=== PATIENT | male | born 1950 | race Caucasian/White ===

== ENCOUNTER 2017-09-03 08:08 | Inpatient (IN) | payer MEDICARE, MEDICAID ==
[~2017-09-03] VITALS: Ht 175.3 cm; Wt 103.0 kg
[2017-09-03] MEDS ORDERED: SODIUM CHLORIDE FLUSH 10ML SYR IVF ONE (09:30)
[2017-09-03 10:14] LABS: ALBUMIN 3.2 g/dL (3.4-5.0); ANION GAP 7 mmol/L (5-15); CALCIUM 8.2 mg/dL (8.5-10.1); CHLORIDE 110 mmol/L (98-107)
[2017-09-03 10:21] LABS: ALANINE AMINOTRANSFERASE 17 U/L (12-78); ALKALINE PHOSPHATASE 92 U/L (45-117); BILIRUBIN,TOTAL 0.9 mg/dL (0.2-1.0); CREATININE 0.97 mg/dL (0.7-1.3); TOTAL PROTEIN 7.4 g/dL (6.4-8.2); TROPONIN I < 0.015 ng/mL (0.000-0.045)
[2017-09-03 10:40] LABS: D-DIMER 0.25 ug/mlFEU (0.00-0.52)
[2017-09-03 10:58] LABS: BASOPHILS # (AUTO) 0.01 x10^3/uL (0-0.1); BASOPHILS % (AUTO) 0 % (0-1); EOSINOPHILS # (AUTO) 0.04 x10^3/uL (0-0.4); EOSINOPHILS % (AUTO) 1 % (1-7); LYMPHOCYTES % (AUTO) 48 % (22-44); MD SCAN; MEAN CORPUSCULAR HEMOGLOBIN 34.6 pg (27.5-34.5); MEAN CORPUSCULAR HGB CONC 34.2 g/dL (33.2-36.2); MEAN PLATELET VOLUME 9.4 fL (7.4-10.4); MONOCYTES # (AUTO) 0.44 x10^3/uL (0.2-0.8); MONOCYTES % (AUTO) 10 % (2-9); NEUTROPHILS # (AUTO) 1.89 x10^3/uL (1.8-6.8); NEUTROPHILS % (AUTO) 41 % (42-75); RED CELL DISTRIBUTION WIDTH 17.8 % (9.4-14.8)
[2017-09-03] MEDS ORDERED: CEFTRIAXONE 1,000 MG in SODIUM CHLORIDE 0.9% 50 ML IVPB ONE (11:00)
[2017-09-03] MEDS ORDERED: AZITHROMYCIN 500 MG in SODIUM CHLORIDE 0.9% 250 ML IV ONE (11:00)
[2017-09-03 11:03] LABS: PLATELET COUNT 38 x10^3/uL (130-400)
[2017-09-03 14:07] VITALS: BP 132/85
[2017-09-03 14:22] VITALS: BP 127/74
[2017-09-03] MEDS ORDERED: ONDANSETRON 2MG/ML, 2ML IVPush PRN (14:30)
[2017-09-03] MEDS ORDERED: ACETAMINOPHEN 325 MG TABLET PO PRN (14:30)
[2017-09-03] MEDS ORDERED: ONDANSETRON ODT 4 MG PO PRN (14:30)
[2017-09-03] MEDS ORDERED: NICOTINE 14MG/24 HR PATCH.TD24 TD SCH (15:00)
[2017-09-03 15:24] LABS: ABSOLUTE RETICS # 0.099 x10^6/uL (0.5-1.5); RETICULOCYTE COUNT % 4.39 % (0.5-1.5)
[2017-09-03 15:25] LABS: RED BLOOD COUNT 2.26 x10^6/uL (4.38-5.82)
[2017-09-03 15:36] VITALS: BP 111/64
[2017-09-03 15:37] LABS: INTERNATIONAL NORMALIZED RATIO 1.02 (0.93-1.1); PROTHROMBIN TIME 10.6 Seconds (9.6-11.5)
[2017-09-03 15:42] LABS: THYROID STIMULATING HORMONE 1.82 mIU/L (0.358-3.740)
[2017-09-03] MEDS: SODIUM CHLORIDE 0.9% 1,000 ML IV SCH (15:43)
[2017-09-03] MEDS ORDERED: OMNIPAQUE 350 MG/ML, 100ML BOTTLE ONE (17:21)
[2017-09-03 17:46] VITALS: BP 132/85
[2017-09-03 18:26] LABS: % IRON SATURATION 31 % (20-55); IRON LEVEL 77 mcg/dL (65-175); TOTAL IRON BINDING CAPACITY 247 mcg/dL (250-450)
[2017-09-03 18:51] LABS: TRANSFERRIN 217 mg/dL (200-360)
[2017-09-03 18:54] LABS: FOLATE LEVEL > 20.0 ng/mL (3.1-17.5)
[2017-09-03 19:44] VITALS: BP 107/68
[2017-09-03] MEDS ORDERED: DOCUSATE 100 MG CAPSULE PO PRN (21:00)
[2017-09-04 03:24] VITALS: BP 101/63
[2017-09-04] MEDS: SODIUM CHLORIDE 0.9% 1,000 ML IV SCH (03:46)
[2017-09-04 05:37] LABS: CHLORIDE 110 mmol/L (98-107)
[2017-09-04 05:53] LABS: ALANINE AMINOTRANSFERASE 15 U/L (12-78); ALBUMIN 2.9 g/dL (3.4-5.0); ALKALINE PHOSPHATASE 93 U/L (45-117); ANION GAP 5 mmol/L (5-15); BILIRUBIN,TOTAL 1.4 mg/dL (0.2-1.0); CALCIUM 8.5 mg/dL (8.5-10.1); CREATININE 0.88 mg/dL (0.7-1.3); TOTAL PROTEIN 6.7 g/dL (6.4-8.2)
[2017-09-04 05:57] LABS: MEAN CORPUSCULAR HEMOGLOBIN 33.4 pg (27.5-34.5); MEAN CORPUSCULAR HGB CONC 34.1 g/dL (33.2-36.2); MEAN CORPUSCULAR VOLUME 98.1 fL (81-97); MEAN PLATELET VOLUME 8.9 fL (7.4-10.4); RED BLOOD COUNT 2.27 x10^6/uL (4.38-5.82); RED CELL DISTRIBUTION WIDTH 17.8 % (9.4-14.8)
[2017-09-04 05:57] LABS: OCCULT BLOOD NEGATIVE (NEGATIVE)
[2017-09-04 06:06] LABS: PLATELET COUNT 29 x10^3/uL (130-400)
[2017-09-04 07:17] LABS: MD YES
[2017-09-04 07:28] VITALS: BP 124/74
[2017-09-04] MEDS ORDERED: PANTOPRAZOLE 40 MG IV IVPush SCH (07:30)
[2017-09-04 07:44] LABS: BAND#(MANUAL) 0.14 x10^3/uL; BANDS%(MANUAL) 3 % (0-7); LYMPHS% (MANUAL) 63 % (22-44); MONOS#(MANUAL) 0.28 x10^3/uL (0.3-2.7); MONOS% (MANUAL) 6 % (2-9); NRBC % (MANUAL) 1 % (0-1); SEG#(MANUAL) 1.29 x10^3/uL (1.8-6.8); SEGS% (MANUAL) 28 % (42-75)
[2017-09-04 07:45] LABS: ANISOCYTOSIS 1+; POLYCHROMASIA 1+; TEAR DROPS 1+
[2017-09-04 07:46] LABS: <PLATELET ESTIMATE> DECREASED; <PLT MORPHOLOGY> NORMAL PLT MORPH
[2017-09-04] MEDS ORDERED: CEFTRIAXONE PMX 1GM/50ML 50 ML IV SCH (11:30)
[2017-09-04] MEDS ORDERED: AZITHROMYCIN 500 MG in SODIUM CHLORIDE 0.9% 250 ML IV SCH (12:00)
== END 2017-09-04 10:40 | disposition left against medical advice (07) | DRG 190 ==
LOC: ED 10:30 → EDIP 11:36 → 3NE 12:50
PROVIDERS: ADMIT Internal Medicine; ATTEND Internal Medicine
PROC: 30233N1 Transfusion of Nonautologous Red Blood Cells into Peripheral Vein, Percutaneous Approach (ICD-10-PCS; principal; 2017-09-03)
DX: J44.0 Chronic obstructive pulmonary disease with (acute) lower respiratory infection (principal); J15.9 Unspecified bacterial pneumonia; E44.1 Mild protein-calorie malnutrition; J98.11 Atelectasis; D53.9 Nutritional anemia, unspecified; D69.6 Thrombocytopenia, unspecified; D72.820 Lymphocytosis (symptomatic); R16.1 Splenomegaly, not elsewhere classified; F12.90 Cannabis use, unspecified, uncomplicated; F17.210 Nicotine dependence, cigarettes, uncomplicated; Z68.33 Body mass index [BMI] 33.0-33.9, adult; Z71.6 Tobacco abuse counseling; Z71.51 Drug abuse counseling and surveillance of drug abuser
CPT/HCPCS: 36415; 71045; 71260; 80053; 82272; 82607; 82728; 82746; 83540; 83550; 83605; 83615; 83880; 84443; 84466; 84484; 85025; 85045; 85379; 85610; 85730; 86850; 86900; 86923; 87040; 93005; 93306; 96365; 99285; J0456; J0696; Q9967; C9113; J7030; J7050; P9016